=== PATIENT | male | born 1945 | race Caucasian/White ===

== ENCOUNTER 2018-02-20 08:39 | Day surgery (SDC) | payer MEDICARE, OTHER ==
[~2018-02-20] VITALS: Ht 177.8 cm; Wt 89.4 kg
[~2018-02-20 08:39] MED LIST: ALBU8.5H5 IH; ASPI-496 PO; BUDE10.2 IH; CHOL5000 PO; FURO-93 PO; FURO20TA3 PO; HYDR-3240 PO; IMMU10VI4 ICATH; ISOS30TA8 PO; LANS30CA60 PO; LEVA15HF4 INH; LISI40TA PO; METO100T5 PO; MULT-658 PO; OMEG1CAP2 PO; OXYC-432 PO; PANT40TA5 PO; POTA8TAB PO; RAMI10CA59 PO; ROSU20TA PO; ROSU5TAB PO; SPIR50TA4 PO; UBID100C24 PO; WARF5TAB PO; ZAFI20TA11 PO
[2018-02-20] MEDS ORDERED: LACTATED RINGERS 1,000 ML IV SCH (09:30)
[2018-02-20 09:34] VITALS: BP 144/82
[2018-02-20] MEDS ORDERED: ONDA4TAB10 PO (09:34)
[2018-02-20] MEDS ORDERED: APIX5TAB PO (09:34)
[2018-02-20] MEDS ORDERED: ACETAMINOPHEN 500 MG TABLET PO ONE (10:00)
[2018-02-20] MEDS ORDERED: ONDANSETRON ODT 8 MG PO ONE (10:00)
[2018-02-20] MEDS ORDERED: ONDANSETRON ODT 8 MG ONE (10:02)
[2018-02-20] MEDS ORDERED: ACETAMINOPHEN 500 MG TABLET ONE (10:04)
[2018-02-20] MEDS ORDERED: FENTANYL PF 100 MCG/2ML ONE ×2 (11:03→14:37)
[2018-02-20] MEDS ORDERED: MIDAZOLAM 1 MG/ML, 2ML ONE (11:03)
[2018-02-20] MEDS ORDERED: EPHEDRINE 50 MG/ML, 1ML ONE (11:09)
[2018-02-20] MEDS ORDERED: PROMETHAZINE 25 MG/ML, 1ML IV PRN (12:00)
[2018-02-20] MEDS ORDERED: ONDANSETRON 2MG/ML, 2ML IV PRN (12:00)
[2018-02-20] MEDS ORDERED: MORPHINE SULFATE 4 MG/ML, 1ML IVPush PRN (12:00)
[2018-02-20] MEDS ORDERED: OXYcodone 5 MG/5 ML ORAL.SOL UDC PO PRN (12:00)
[2018-02-20] MEDS ORDERED: ALBUTEROL/IPRATROPIUM 2.5MG/0.5MG, 3 ML NPPB PRN (12:00)
[2018-02-20] MEDS ORDERED: MEPERIDINE/PF 25MG/0.5ML IVPush PRN (12:00)
[2018-02-20] MEDS ORDERED: LABETALOL 5MG/ML, 20ML IV PRN (12:00)
[2018-02-20] MEDS ORDERED: PROMETHAZINE 25 MG SUPP PR PRN (12:00)
[2018-02-20] MEDS ORDERED: FENTANYL PF 100 MCG/2ML IV PRN (12:00)
[2018-02-20] MEDS ORDERED: LIDOCAINE/PF 1%, 30ML ONE (12:31)
[2018-02-20] MEDS ORDERED: BUPIVACAINE/PF 0.5% ONE (12:31)
[2018-02-20] MEDS ORDERED: ONDANSETRON 2MG/ML, 2ML ONE (13:29)
[2018-02-20] MEDS ORDERED: PROPOFOL 10 MG/ML, 20ML ONE (13:29)
[2018-02-20] MEDS ORDERED: SUCCINYLCHOLINE 20 MG/ML, 10ML ONE (13:29)
[2018-02-20] MEDS ORDERED: GLYCOPYRROLATE 0.2MG/1ML, 5ML ONE (13:29)
[2018-02-20] MEDS ORDERED: CEFAZOLIN 1,000 MG ONE (13:29)
[2018-02-20] MEDS ORDERED: DEXAMETHASONE 4 MG/ML, 1ML ONE (13:29)
[2018-02-20] MEDS ORDERED: ROCURONIUM 10MG/ML,5ML ONE (13:29)
[2018-02-20] MEDS ORDERED: NEOSTIGMINE 1 MG/ML, 10ML ONE (13:29)
[2018-02-20] MEDS ORDERED: OXYcodone 5 MG/5 ML ORAL.SOL UDC ONE (14:37)
== END 2018-02-20 15:50 | disposition home or self-care (01) ==
LOC: OUT 08:39
PROVIDERS: ATTEND Orthopaedic Surgery
DX: M20.41 Other hammer toe(s) (acquired), right foot (principal); M20.5X1 Other deformities of toe(s) (acquired), right foot; J45.909 Unspecified asthma, uncomplicated; I25.10 Atherosclerotic heart disease of native coronary artery without angina pectoris; K21.9 Gastro-esophageal reflux disease without esophagitis; I10 Essential (primary) hypertension; Z86.718 Personal history of other venous thrombosis and embolism; Z86.14 Personal history of Methicillin resistant Staphylococcus aureus infection; Z85.46 Personal history of malignant neoplasm of prostate; Z87.891 Personal history of nicotine dependence; Z72.89 Other problems related to lifestyle; Z88.5 Allergy status to narcotic agent; Z88.8 Allergy status to other drugs, medicaments and biological substances
CPT/HCPCS: 28285; 28308; 82962; 88300; J0330; J0690; J1100; J2250; J2405; J2704; J2710; J3010; J3490; J7120; Q0162